=== PATIENT | female | born 1960 | race Caucasian/White ===

== ENCOUNTER 2020-10-30 19:57 | Emergency (ER) | payer MEDICARE, OTHER ==
[~2020-10-30 19:57] MED LIST: ALBUTEROL1.25 MG/3 INH; BREO ELLIPTA 11 EACH INH; CIPRO500 MG PO; CYMBALTA60 MG PO; ECOTRIN81 MG PO; FLAGYL500 MG PO; FLONASE 0.05% N16 GM; GABAPENTIN300 MG PO; LIPITOR40 MG PO; LOPRESSOR100 MG PO; RESTASIS 0.05%1 EACH OD; TOPAMAX100 MG PO; VITAMIN D250000 UNIT PO; ZANAFLEX4 MG PO; ZANTAC150 MG PO; ZYRTEC10 MG PO
== END 2020-10-30 23:10 | disposition home or self-care (01) ==
LOC: ER1 19:57
DX: S39.012A Strain of muscle, fascia and tendon of lower back, initial encounter (principal); S29.012A Strain of muscle and tendon of back wall of thorax, initial encounter; E78.5 Hyperlipidemia, unspecified; I10 Essential (primary) hypertension; Z86.711 Personal history of pulmonary embolism; Z88.5 Allergy status to narcotic agent; W06.XXXA Fall from bed, initial encounter
CPT/HCPCS: 71111; 72128; 72131; 99284